=== PATIENT | male | born 1960 | race Caucasian/White ===

== ENCOUNTER 2017-05-22 17:34 | Inpatient (IN) | payer OTHER ==
[~2017-05-22] VITALS: Ht 172.7 cm; Wt 108.9 kg
[2017-05-22] VITALS (9 sets, daily range): BP systolic 112–144; BP diastolic 76–87
[~2017-05-22 17:34] MED LIST: ADENOSINE 6 MG/2 ML (ADENOCARD) VIAL IV ONE; NS IV 500 ML 500 ML ONE
[2017-05-22] MEDS: NS IV 500 ML 500 ML IV SCH ×2 (17:38→17:53)
[2017-05-22] MEDS ORDERED: SODIUM CHLORIDE (ADD-VANTAGE) 100 ML IV ONE (17:40)
[2017-05-22] MEDS ORDERED: DILTIAZEM 25 MG/5 ML INJ (CARDIZEM) VIAL ONE (17:41)
[2017-05-22] MEDS ORDERED: DILTIAZEM 100 MG/VIAL (CARDIZEM) ADD-VANTAGE IV ONE (17:41)
[2017-05-22] MEDS ORDERED: DILTIAZEM DRIP 100 MG in SODIUM CHLORIDE (ADD-VANTAGE) 100 ML IV SCH (17:45)
[2017-05-22] MEDS ORDERED: ASPIRIN 81 MG CHEW (CHILDREN'S ASA) PO ONE (17:45)
[2017-05-22] MEDS ORDERED: ADENOSINE 6 MG/2 ML (ADENOCARD) VIAL IV ONE ×2 (17:45)
[2017-05-22] MEDS ORDERED: DILTIAZEM 25 MG/5 ML INJ (CARDIZEM) VIAL IVP ONE (17:45)
--- NOTE | 2017-05-22 17:56 | ED Cardiac General ---
History of Present Illness General Chief Complaint: Cardiac/General Problems Stated Complaint: HIGH HEART RATE Nursing Triage Note: SENT OVER FROM DR LUZ OFFICE WITH A HR OF 16. DENIES CP OR SOA. 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 Gaston) office with reports of tachycardia found during a routine eye exam. Patient denies any dyspnea, chest pain, diaphoresis though he does state that he feels his heart beating a little fast. He is unsure how long he is been feeling this way because he does not report any significant fatigue or any other real symptoms. Has no history of this. Primary care is Dr. Raymond. 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 Timing/Duration: 1-3 hours Severity: mild Activities at Onset: none NTG SL NOVELTY DIPPER: No ASA po NOVELTY DIPPER: No Associated Systoms: No Diaphoresis Allergies and Home Medications Allergies Coded Allergies: No Known Drug Allergies (Unverified , 05/22/17) Review of Systems Constitutional: see HPI, No diaphoresis, No weakness EENTM: No Symptoms Reported Respiratory: No Symptoms Reported Cardiovascular: See HPI, Denies Chest Pain, Denies Edema, Denies Irregular Heart Rate, Denies Lightheadedness, Denies Palpitations, Denies Syncope Gastrointestinal: No Symptoms Reported Genitourinary: No Symptoms Reported Musculoskeletal: no symptoms reported Skin: no symptoms reported Psychiatric/Neurological: No Symptoms Reported Endocrine: No Symptoms Reported Hematologic/Lymphatic: No Symptoms Reported (L) Past Banrnfj-Weltvp-Ctcqmr Hx Patient Social History Recent Foreign Travel: No Contact w/Someone Who Travel: No Recent Infectious Disease Expo: No Cardiovascular Cardiac Disorders: High Cholesterol Physical Exam Vital Signs Vital Sign - Last 12Hours 05/22/17 05/22/17 17:36 17:42 Temp 98.0 Pulse 161 Resp 16 Pulse Ox 98 O2 Delivery Nasal Cannula O2 Flow Rate 2.00 Capillary Refill : Less Than 3 Seconds General Appearance: No Apparent Distress, WD/WN HEENT: PERRL/EOMI, TMs Normal Neck: Full Range of Motion, Normal Inspection Respiratory: Normal Breath Sounds, No Accessory Muscle Use, No Respiratory Distress Cardiovascular: Normal Peripheral Pulses, Tachycardia Extremity: Normal Capillary Refill, Normal Inspection Neurologic/Psychiatric: Alert, Oriented x3, No Motor/Sensory Deficits Skin: Normal Color, Warm/Dry Other comments Upon arrival to ER 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 Blood pressure 140/ 105. Patient was given 6 program bolus of adenosine with no change in rhythm or rate. This was followed 2 minutes later by a 12 mg bolus which temporarily slowed the rate enough to see the underlying rhythm which was found to be atrial flutter. This was captured on surgical rn. This will be attached to his chart. Aspirin was given, Cardizem 10 mg bolus and 10 mg an hour started. Progress/Results/Core Measures Results/Orders My Orders Orders - UVALDO MORRISON APRN Cbc With Automated Diff (05/22/17 17:44) Comprehensive Metabolic Panel (05/22/17 17:44) Thyroid Stimulating Hormone (05/22/17 17:44) Ekg Tracing (05/22/17 17:44) Continuous Ekg Monitoring (05/22/17 17:44) Saline Lock/Iv-Start (05/22/17 17:44) Troponin I (05/22/17 17:44) Magnesium (05/22/17 17:44) Adenosine Injection (Adenocard Injection (05/22/17 17:45) Adenosine Injection (Adenocard Injection (05/22/17 17:45) Free T4 (Free Thyroxine) (05/22/17 17:44) Diltiazem Injection (Cardizem Injection) (05/22/17 17:45) Cardizem Drip (05/22/17 17:45) Aspirin Chewable Tablet (Baby Aspirin Ch (05/22/17 17:45) Normal Saline 500 Ml Iv (05/22/17 17:45) Ekg Tracing (05/22/17 17:46) Vital Signs/I&O Vital Sign - Last 12Hours 05/22/17 05/22/17 17:36 17:42 Temp 98.0 Pulse 161 Resp 16 B/P (MAP) Pulse Ox 98 O2 Delivery Nasal Cannula O2 Flow Rate 2.00 Departure Impression Impression: Primary Impression: Atrial flutter with rapid ventricular response Disposition: HOME, SELF-CARE Condition: Stable Decision to Admit Reason: Admit from ER (General) Decision to Admit/Date: May 22, 2017 Time/Decision to Admit Time: 17:58 Departure-Patient Inst. Referrals: NO,LOCAL PHYSICIAN (PCP/Family) Primary Care Physician UVALDO MORRISON APRN May 22, 2017 17:56
[2017-05-22 18:08] LABS: BASOPHILS # (AUTO) 0.1 10^3/uL (0.0-0.1); BASOPHILS % (AUTO) 1 % (0-10); EOSINOPHILS # (AUTO) 0.1 10^3/uL (0.0-0.3); EOSINOPHILS % (AUTO) 2 % (0-10); LYMPHOCYTES # (AUTO) 2.5 X 10^3 (1.0-4.0); LYMPHOCYTES % (AUTO) 37 % (12-44); MEAN CORPUSCULAR HEMOGLOBIN 29 PG (25-34); MEAN CORPUSCULAR HGB CONC 34 G/DL (32-36); MEAN CORPUSCULAR VOLUME 87 FL (80-99); MEAN PLATELET VOLUME 11.6 FL (7.4-10.4); MONOCYTES # (AUTO) 0.8 X 10^3 (0.0-1.0); MONOCYTES % (AUTO) 11 % (0-12); NEUTROPHILS # (AUTO) 3.3 X 10^3 (1.8-7.8); NEUTROPHILS % (AUTO) 50 % (42-75); PLATELET COUNT 241 10^3/uL (130-400); RED BLOOD COUNT 5.34 10^6/uL (4.35-5.85); RED CELL DISTRIBUTION WIDTH 12.7 % (10.0-14.5); WHITE BLOOD COUNT 6.8 10^3/uL (4.3-11.0)
[2017-05-22 18:29] LABS: ALANINE AMINOTRANSFERASE 20 U/L (0-55); ALBUMIN 4.1 GM/DL (3.2-4.5); ANION GAP 10 MMOL/L (5-14); ASPARTATE AMINO TRANSFERASE 17 U/L (5-34); BILIRUBIN,TOTAL 0.8 MG/DL (0.1-1.0); BLOOD UREA NITROGEN 15 MG/DL (7-18); BUN/CREATININE RATIO 13; CALCIUM 9.2 MG/DL (8.5-10.1); CARBON DIOXIDE 24 MMOL/L (21-32); CHLORIDE 106 MMOL/L (98-107); CREATININE SERUM 1.19 MG/DL (0.60-1.30); GFR ESTIMATED > 60; GLUCOSE 111 MG/DL (70-105); POTASSIUM 3.6 MMOL/L (3.6-5.0); SODIUM 140 MMOL/L (135-145); TOTAL PROTEIN 7.1 GM/DL (6.4-8.2)
--- NOTE | 2017-05-22 18:38 | Diagnostic Imaging Report ---
INDICATION: Hypertension and tachycardia. EXAMINATION: Portable upright view of the chest was obtained. COMPARISON: No previous study is available at this time for comparison. FINDINGS: Heart size and pulmonary vascularity are within normal limits, and the lungs are clear, bilaterally. IMPRESSION: Unremarkable chest. Dictated by: Dictated on workstation # [id number]
[2017-05-22] MEDS ORDERED: NS IV 500 ML 500 ML IV SCH (18:45)
[2017-05-22 18:49] LABS: THYROID STIMULATING HORMONE 0.86 UIU/ML (0.35-4.94); TROPONIN I < 0.30 NG/ML (<0.30)
[2017-05-22] MEDS ORDERED: APIXABAN 5 MG (ELIQUIS) TABLET PO ONE (19:15)
[2017-05-22] MEDS ORDERED: NS IV 1000 ML 1,000 ML ONE (19:50)
[2017-05-22] MEDS ORDERED: CATHETER FLUSH 10 ML SYR IV PRN (20:15)
[2017-05-22] MEDS ORDERED: DILTIAZEM DRIP 100 MG/NS 100 ML IV SCH ×2 (20:15)
[2017-05-22] MEDS: APIXABAN 5 MG (ELIQUIS) TABLET PO SCH (20:51)
[2017-05-22] MEDS: NS IV 1000 ML 1,000 ML IV SCH (20:52)
[2017-05-23] VITALS (11 sets, daily range): BP systolic 87–140; BP diastolic 48–100
[2017-05-23 03:42] LABS: BASOPHILS % (AUTO) 1 % (0-10); EOSINOPHILS # (AUTO) 0.2 10^3/uL (0.0-0.3); EOSINOPHILS % (AUTO) 3 % (0-10); LYMPHOCYTES % (AUTO) 35 % (12-44); MEAN CORPUSCULAR HEMOGLOBIN 30 PG (25-34); MEAN CORPUSCULAR HGB CONC 34 G/DL (32-36); MEAN CORPUSCULAR VOLUME 89 FL (80-99); MEAN PLATELET VOLUME 11.4 FL (7.4-10.4); MONOCYTES # (AUTO) 0.7 X 10^3 (0.0-1.0); MONOCYTES % (AUTO) 11 % (0-12); NEUTROPHILS % (AUTO) 51 % (42-75); PLATELET COUNT 177 10^3/uL (130-400); RED BLOOD COUNT 4.56 10^6/uL (4.35-5.85); RED CELL DISTRIBUTION WIDTH 12.7 % (10.0-14.5); WHITE BLOOD COUNT 5.9 10^3/uL (4.3-11.0)
[2017-05-23 04:07] LABS: ANION GAP 12 MMOL/L (5-14); BLOOD UREA NITROGEN 13 MG/DL (7-18); BUN/CREATININE RATIO 13; CALCIUM 8.2 MG/DL (8.5-10.1); CARBON DIOXIDE 21 MMOL/L (21-32); CHLORIDE 109 MMOL/L (98-107); CREATININE SERUM 0.99 MG/DL (0.60-1.30); GFR ESTIMATED > 60; GLUCOSE 103 MG/DL (70-105); POTASSIUM 3.5 MMOL/L (3.6-5.0); SODIUM 142 MMOL/L (135-145)
[2017-05-23] MEDS ORDERED: MAGNESIUM 1 GM/100 ML IVPB 100 ML IV SCH (06:00)
[2017-05-23] MEDS ORDERED: KCL 20 MEQ TAB (K-DUR) PO ONE (06:00)
[2017-05-23] MEDS ORDERED: KCL 20 MEQ TAB (K-DUR) PO SCH (06:00)
[2017-05-23] MEDS ORDERED: POTASSIUM CL 10MEQ/50ML IVPB 50 ML IV SCH (06:00)
--- NOTE | 2017-05-23 08:26 | Consultation-Cardiology ---
HPI-Cardiology Cardiology Consultation: Date of Consultation 05/23/17 Time Seen by Provider: 08:00 Date of Admission 05-22-17 Attending Physician Shanda Sherman DO Admitting Physician Dorothy,Local Physician Consulting Physician WILTON CONROY HPI: Chief Complaint: New onset a-flutter with RVR Mr. Roy is a 57 year old male admitted to ICU 10 from the ED. 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 He reports no c/o palpitations, CP, dyspnea, syncope, near syncope or LE edema. He reports no previous h/o arrhythmia. He does not report any n/v /d. No c/o fever or chills. He is sitting up in the chair at the bedside. He denies any c/o. Review of Systems-Cardiology Review of Systems Constitutional: As described under HPI Eyes: No As described under HPI, No no symptoms reported, No blindness, No blurred vision, No contact lenses, No drainage, No decreased acuity, No foreign body sensation, No pain, No vision change Ears/Nose/Throat: No As described under HPI, No no symptoms reported, No chronic hearing loss, No ear discharge, No ear pain, No nasal drainage, No ulcerations Respiratory: As described under HPI Cardiovascular: As described under HPI Gastrointestinal: No no symptoms reported, No As described under HPI, No abdomen distended, No abdominal pain, No blood streaked bowels, No constipation , No diarrhea, No nausea, No vomiting, No stool coloration changes Genitourinary: No As described under HPI, No burning, No dysuria, No discharge , No frequency, No flank pain, No hematuria, No urgency Skin: No rash, No skin related problems, No ulcerations Psychiatric/Neurological: No anxiety, No depression, No focal weakness, No seizure, No syncope Hematologic: No bleeding abnormalities PBI-Ydzgne-Zryyse Hx Patient Social History Alcohol Use: Denies Use Recreational Drug Use: No Smoking Status: Never a Smoker Recent Foreign Travel: No Recent Infectious Disease Expo: No Physical Abuse Screen: No Sexual Abuse: No Past Medical History PMH As described under Assessment. Family Medical History Family Medical History: He reports he was adopted and does not know his family medical history. Allergies and Home Medications Allergies Coded Allergies: No Known Drug Allergies (Unverified , 05/22/17) Home Medications Apixaban 5 Mg Tablet, 5 MG PO BID, #60 Ref 3 Prescribed by: WILTON SEARS on 05/23/17 1419 Aspirin 81 Mg Tablet.dr, 81 MG PO HS, (Reported) Diltiazem HCl 120 Mg Cap.er.24h, 120 MG PO DAILY, #30 Ref 3 Prescribed by: WILTON SEARS on 05/23/17 1419 Lovastatin 20 Mg Tablet, 20 MG PO HS, (Reported) Physical Exam-Cardiology Physical Exam Vital Signs/I&O Vital Sign - Last 12Hours 05/23/17 05/23/17 05/23/17 05/23/17 04:00 04:00 05:00 06:00 Pulse 62 87 56 Resp 6 19 12 B/P (MAP) 127/92 114/67 122/70 Pulse Ox 98 95 92 97 O2 Delivery Room Air Room Air Room Air Room Air 05/23/17 05/23/17 05/23/17 05/23/17 07:00 07:00 08:00 09:00 Pulse 82 82 61 67 Resp 23 13 6 B/P (MAP) 139/97 134/81 140/91 Pulse Ox 96 97 99 O2 Delivery Room Air Room Air Room Air 05/23/17 05/23/17 05/23/17 09:45 10:00 13:00 Temp 97.4 Pulse 69 65 B/P (MAP) 113/100 O2 Delivery Room Air Intake and Output 05/23/17 00:00 Intake Total 0 ml Output Total 0 ml Balance 0 ml Capillary Refill : Less Than 3 Seconds Constitutional: appears stated age, No apparent distress, well-developed, well- nourished HEENT: PERRL, No discharge, hearing is well preserved, oral hygience is good, No ulceration, No xanthelasmas are seen Neck: No carotid bruit, carotid pulses are 2 + bilaterally Respiratory: No accessory muscle use, No respiratory distress, lungs clear to auscultation Cardiovascular: regular rate-rhythm, No JVD, S1 and S2 Gastrointestinal: No tender, soft, round, audible bowel sounds, No spleenomegaly Rectal: deferred Extremities: No clubbing, No cyanosis, No significant edema Neurologic/Psychiatric: alert, oriented x 3, power is 5/5 both on sides Skin: No rash, No ulcerations Data Review Labs Laboratory Tests 05/22/17 17:40: White Blood Count 6.8, Red Blood Count 5.34, Hemoglobin 15.6, Hematocrit 47, Mean Corpuscular Volume 87, Mean Corpuscular Hemoglobin 29, Mean Corpuscular Hemoglobin Concent 34, Red Cell Distribution Width 12.7, Platelet Count 241, Mean Platelet Volume 11.6H, Neutrophils (%) (Auto) 50, Lymphocytes (%) (Auto) 37 , Monocytes (%) (Auto) 11, Eosinophils (%) (Auto) 2, Basophils (%) (Auto) 1, Neutrophils # (Auto) 3.3, Lymphocytes # (Auto) 2.5, Monocytes # (Auto) 0.8, Eosinophils # (Auto) 0.1, Basophils # (Auto) 0.1, Sodium Level 140, Potassium Level 3.6, Chloride Level 106, Carbon Dioxide Level 24, Anion Gap 10, Blood Urea Nitrogen 15, Creatinine 1.19, Estimat Glomerular Filtration Rate > 60, BUN/ Creatinine Ratio 13, Glucose Level 111H, Calcium Level 9.2, Magnesium Level 2.0 , Total Bilirubin 0.8, Aspartate Amino Transf (AST/SGOT) 17, Alanine Aminotransferase (ALT/SGPT) 20, Alkaline Phosphatase 53, Troponin I < 0.30, Total Protein 7.1, Albumin 4.1, Thyroid Stimulating Hormone (TSH) 0.86, Free Thyroxine 1.02 05/23/17 03:15: White Blood Count 5.9, Red Blood Count 4.56, Hemoglobin 13.6, Hematocrit 41, Mean Corpuscular Volume 89, Mean Corpuscular Hemoglobin 30, Mean Corpuscular Hemoglobin Concent 34, Red Cell Distribution Width 12.7, Platelet Count 177, Mean Platelet Volume 11.4H, Neutrophils (%) (Auto) 51, Lymphocytes (%) (Auto) 35 , Monocytes (%) (Auto) 11, Eosinophils (%) (Auto) 3, Basophils (%) (Auto) 1, Neutrophils # (Auto) 3.0, Lymphocytes # (Auto) 2.0, Monocytes # (Auto) 0.7, Eosinophils # (Auto) 0.2, Basophils # (Auto) 0.0, Sodium Level 142, Potassium Level 3.5L, Chloride Level 109H, Carbon Dioxide Level 21, Anion Gap 12, Blood Urea Nitrogen 13, Creatinine 0.99, Estimat Glomerular Filtration Rate > 60, BUN/ Creatinine Ratio 13, Glucose Level 103, Calcium Level 8.2L, Magnesium Level 2.0 , Phosphorus Level 3.0 Radiology NAME: [facility] REC#: [id number] PT STATUS: REG ER : 1960 PHYSICIAN: UVALDO MORRISON APRN ADMIT DATE: 05/22/17/ER Signed Date of Exam: 05/22/17 CHEST 1 VIEW, AP/PA ONLY INDICATION: Hypertension and tachycardia. EXAMINATION: Portable upright view of the chest was obtained. COMPARISON: No previous study is available at this time for comparison. FINDINGS: Heart size and pulmonary vascularity are within normal limits, and the lungs are clear, bilaterally. IMPRESSION: Unremarkable chest. Dictated by: Dictated on workstation # [id number] Dict: 05/22/171836 Trans: 05/22/171837 Interpreted by: NORMA DECKER MD Electronically signed by: NORMA DECKER MD 05/22/171837 ECG Impression ECG Initial ECG Rhythm: A Fib/Flutter A/P-Cardiology Assessment/Admission Diagnosis PAFib/Flutter: currently NSR Echo of 05/23/17: normal LVEF HLP - statin tx followed by his PCP Elevated BMI of 36.5 Hypokalemia, replenished during this hospitalization TSH normal (0.86)on 05-22-17 Discussion and Recomendations Newly diagnosed p. a-flutter with RVR. He has converted to SR with a controlled rate. OAC with Eliquis has already been started in the ED. We will continue. Echocardiogram to evaluate structure and function. No evidence of ACS. Consider discharge home today with outpatient stress test to evaluate coronary status. Mild hypokalemia which we will replace. Continue statin tx. We would like to thank medical services for this consult. Further recommendations will be based on his hospital course. This consult is being scribed by Wayne Sears APRN on behalf of Dr. Olmstead after discussion regarding plan of care. Clinical Quality Measures AMI/AHF: ASA po Prior to arrival: No DVT/VTE Risk/Contraindication: Risk Factor Score Per Nursin RFS Level Per Nursing on Admit: 1=Low/No VTE PPX Physician Assessment Physician Assessment Lungs: good bilat air entry Cor: reg Ext: no c/c/e A&R * As documented in our note above that I updated (italics) and as noted below * I discussed with him the potential etiologies of PAF * I discussed the treatment rationale * We are continuing apixaban for stroke prophylaxis and dilt for rate control * Eval for SOLOMON is advised. This will be undertaken as an outpatient * I spoke with him and his family and answered questions * Outpatient f/u is advised WILTON SEARS PAINT SPECIALIST May 23, 2017 08:26 IVY OLMSTEAD MD [facility] May 23, 2017 15:30
[2017-05-23] MEDS ORDERED: DILTIAZEM 120 MG (CARDIZEM CD) CAP PO SCH (09:00)
[2017-05-23] MEDS ORDERED: LOVA20TA2 PO (09:41)
[2017-05-23] MEDS ORDERED: ASPI-983 PO (09:41)
[2017-05-23] MEDS: APIXABAN 5 MG (ELIQUIS) TABLET PO SCH (09:44)
--- NOTE | 2017-05-23 11:38 | Short Stay Summary-Hospitalist ---
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 He was asymptomatic vital signs remained stable throughout the entire issue when he arrived in the ER patient was found to have confirmed tachycardia of 170s Adenosine was given to slow the rate down it was documented his atrial flutter. He was placed on Cardizem drip cardiology was consulted he was monitored in the ICU and no decompensation occur during the ICU stay. He converted to normal sinus rhythm at 2230 hours last night and was able to ambulate along with telemetry without any issues with recurrence. He has never been tested for sleep apnea and I recommend that to fully evaluate the possibility of that being the etiology. Source: patient Exam Limitations: no limitations Date Seen 05/23/17 Time Seen by Provider: 11:00 Attending Physician Shanda Sherman DO PCP No,Local Physician Referring Physician Date of Admission May 22, 2017 at 18:58 Home Medications & Allergies Home Medications Reviewed patient Home Medication Reconciliation Form Allergies Allergies Coded Allergies No Known Drug Allergies (Unverified05/22/17) Past Hcgyljm-Pqgfty-Yznlqe Hx Patient Social History Marrital Status: Employed/Student: employed Alcohol Use: Denies Use Recreational Drug Use: No Smoking Status: Never a Smoker Physical Abuse Screen: No Sexual Abuse: No Recent Foreign Travel: No Contact w/other who traveled: No Recent Hopitalizations: No Recent Infectious Disease Expo: No Seasonal Allergies Seasonal Allergies: Yes Respiratory Hx Respiratory Disorders: No Cardiovascular Hx Cardiovascular Disorders: Yes Cardiac Disorders: High Cholesterol Neurological Hx Neurological Disorders: No Reproductive System Sexually Transmitted Disease: No HIV/AIDS: No Genitourinary Hx Genitourinary Disorders: No Gastrointestinal Hx Gastrointestinal Disorders: No Musculoskeletal Hx Musculoskeletal Disorders: No Endocrine Hx Endocrine Disorders: No HEENT HX ENT Disorders: No Loss of Vision: Denies Hearing Impairment: Denies Cancer Hx Cancer: No Psychosocial Hx Psychiatric Problems: No Integumentary HX Skin/Integumentary Disorder: No Blood Transfusions Adverse Reaction to a Blood Tr: No Review of Systems Constitutional: see HPI EENTM: no symptoms reported Respiratory: no symptoms reported Cardiovascular: palpitations Gastrointestinal: no symptoms reported Genitourinary: no symptoms reported Musculoskeletal: no symptoms reported Skin: no symptoms reported Psychiatric/Neurological: No Symptoms Reported All Other Systems Reviewed Negative Unless Noted: Yes Physical Exam Physical Exam Vital Signs Vital Sign - Last 12Hours 05/22/17 05/22/17 05/22/17 17:36 17:42 17:50 Temp 98.0 Pulse 161 Resp 16 B/P (MAP) 128/91 Pulse Ox 98 O2 Delivery Nasal Cannula O2 Flow Rate 2.00 Capillary Refill : Less Than 3 Seconds General Appearance: No Apparent Distress, WD/WN, Obese Eyes: Bilateral Eye Normal Inspection, Bilateral Eye PERRL HEENT: PERRL/EOMI, Normal ENT Inspection, Pharynx Normal Neck: Full Range of Motion, Normal Inspection, Non Tender, Supple, Carotid Bruit Respiratory: Chest Non Tender, Lungs Clear, Normal Breath Sounds, No Accessory Muscle Use, No Respiratory Distress Cardiovascular: Regular Rate, Rhythm, No Edema, No Gallop, No JVD, No Murmur, Normal Peripheral Pulses Gastrointestinal: Normal Bowel Sounds, No Organomegaly, No Pulsatile Mass, Non Tender, Soft Back: Normal Inspection, No CVA Tenderness, No Vertebral Tenderness Extremity: Normal Capillary Refill, Normal Inspection, Normal Range of Motion, Non Tender, No Calf Tenderness, No Pedal Edema Neurologic/Psychiatric: Alert, Oriented x3, No Motor/Sensory Deficits, Normal Mood/Affect Skin: Normal Color, Warm/Dry Lymphatic: No Adenopathy Results Results/Procedures Lab Laboratory Tests 05/22/17 17:40 05/23/17 03:15 Short Stay Diagnosis Discharge Diagnosis-Short Stay Admission Diagnosis Assessment: Acute onset of tachycardia of 160 heart rate status post adenosine revealing atrial flutter now converted to sinus rhythm after Cardizem drip Hyperlipidemia I suspect sleep apnea Final Discharge Diagnosis Assessment: Acute onset of tachycardia of 160 heart rate status post adenosine revealing atrial flutter now converted to sinus rhythm after Cardizem drip Hyperlipidemia I suspect sleep apnea Conclusion Plan Plan: Reconcile all home meds Cardiology for discharge cardiac meds Disposition per cardiology Needs sleep study Clinical Quality Measures AMI/AHF: ASA po Prior to arrival: No DVT/VTE Risk/Contraindication: Risk Factor Score Per Nursin RFS Level Per Nursing on Admit: 1=Low/No VTE PPX SHANDA SHERMAN DO May 23, 2017 11:38
[2017-05-23] MEDS: NS IV 1000 ML 1,000 ML IV SCH ×2 (12:17→12:18)
[2017-05-23] MEDS ORDERED: DILT120C63 PO (14:19)
[2017-05-23] MEDS ORDERED: APIX5TAB PO (14:19)
[2017-05-23] MEDS ORDERED: SIMvastatin 10 MG (ZOCOR) TAB PO SCH (21:00)
[2017-05-23] MEDS ORDERED: ASPIRIN E.C. 81 MG (ECOTRIN) TAB PO SCH (21:00)
== END 2017-05-23 14:50 | disposition home or self-care (01) | DRG 310 ==
LOC: EDUNIT# 17:34 → ER 17:36 → ICU 18:58
PROVIDERS: ADMIT Internal Medicine; ATTEND Internal Medicine
DX: I48.92 Unspecified atrial flutter (principal); E78.5 Hyperlipidemia, unspecified; G47.30 Sleep apnea, unspecified; E87.6 Hypokalemia
CPT/HCPCS: 36415; 71010; 80048; 80053; 83735; 84100; 84439; 84443; 84484; 85025; 87081; 93005; 93306; 96361; 96374; 96375